=== PATIENT | female | born 1965 | race Caucasian/White ===

== ENCOUNTER 2024-03-01 00:31 | Emergency (ER) | payer OTHER, SELFPAY ==
[2024-03-01 00:34] VITALS: BP 165/106
--- NOTE | 2024-03-01 01:27 | ED.GENMED ---
History of Present Illness
<Zena Mares EXERCISE SCIENCE INSTRUCTOR - Last Filed: 03/01/24 19:55>
General
Chief Complaint: Dizziness
Source: patient and family (daughter at bedside)
Exam Limitations: none
Time Seen by Provider: 03/01/24 01:04
Nursing documentation reviewed up to this point in time: agreed with
Travel History
Have you had any contact with someone who has COVID-19?: No
Do you have any symptoms of coronavirus? Fever > 100 degrees, chills, cough, shortness of breath, sore throat, loss of taste or smell, muscle aches, or headache?: No
History of Present Illness
History of Present Illness:
58 yo female [place] only speaking (daughter is interpreting) here for episodic dizziness since this a.m. It only occurs if she is laying down on her right side and then turns onto her left side, she feels dizzy for about a minute and then it
subsides. It happened this a.m., then during her nap 2 p.m. and she went to daughter's room and woke her up as she was afraid to go through the night as it occurred again as she lay down tonight. Had mild headache back right side of head, not
unusual for her as she gets frequent headaches. Denies change in vision. Denies numbness or weakness in extremities.
Past History
<Zena Mares, EXERCISE SCIENCE INSTRUCTOR - Last Filed: 03/01/24 19:55>
Past History
ED Past Medical History: HTN
ED Past Surgical History: Appendectomy
Review of Systems
<Zena Mares, EXERCISE SCIENCE INSTRUCTOR - Last Filed: 03/01/24 19:55>
Review of Systems
Allergies reviewed?: Yes
All Other Systems: ROS reviewed and negative except as documented in HPI and ROS
Constitutional: Denies fever or fatigue
Respiratory: Denies trouble breathing
Cardiac: Denies chest pain or syncope
ABD/GI: Denies abdominal pain, nausea or vomiting
: Denies dysuria, frequency, difficulty voiding or urgency
Musculoskeletal: Reports no symptoms
Skin: Reports no symptoms
Neurological: Reports dizzy and headache (mild, typical of her chronic headaches); Denies weakness or numbness
Phy Exam
<Zena Mares, EXERCISE SCIENCE INSTRUCTOR - Last Filed: 03/01/24 19:55>
Physical Exam
Physical Exam:
GENERAL: No acute distress. A&Ox3.
CONSTITUTIONAL: Afebrile.
EYES: PERRL, conjunctivae normal
Neck: Supple
ENMT: moist mucus membranes, Pharynx nl
RESPIRATORY: Regular respirations, nonlabored, lungs clear.
CARDIOVASCULAR: Regular rate and rhythm, no murmurs, no rubs.
GI: Soft, nontender, normal BS
MUSCULOSKELETAL: Moves with ease. Well perfused.
SKIN: Warm, dry, pink
PSYCH: Normal mood and affect. Well kept, interactive and appropriate
NEUROLOGIC: Awake, alert and oriented. CN 2-12 intact. finger to nose intact. No focal neurological deficits. Ambulates well with steady gait.
Course
<Zena Mares, EXERCISE SCIENCE INSTRUCTOR - Last Filed: 03/01/24 19:55>
Orders/Labs/Results
Orders:
Orders
03/01/24 01:19
CT Head W/o Iv Contrast Urgent
Comment:
Reason For Exam: dizziness
03/01/24 01:41
Meclizine [Antivert] 25 mg PO NOW STA
03/01/24 01:47
Complete Blood Count/With Diff Urgent
Comprehensive Metabolic Panel Urgent
Urinalysis Reflex To Culture Urgent
Date Specimen was Collected: 03/01/24
Time Specimen was Collected: 01:38
Abnormal Lab Results
03/01/24
01:47
Hct 36.3 L %
(37.0-47.0)
MPV 10.7 H fL
(7.4-10.4)
Chloride 109 H mmol/L
(98-107)
Creatinine 0.5 L mg/dL
(0.6-1.0)
Glucose 119 H mg/dl
(70-99)
03/01/24 01:47
03/01/24 01:47
Vital Signs
Initial and Last Documented VS:
Initial Vital Signs
Temp Pulse Resp BP Pulse Ox
98.7 F 74 16 165/106 100
03/01/24 00:34 03/01/24 00:34 03/01/24 00:34 03/01/24 00:34 03/01/24 00:34
Last Documented Vital Signs
Temp Pulse Resp BP Pulse Ox
98.7 F 72 14 156/96 97
03/01/24 00:34 03/01/24 02:30 03/01/24 02:30 03/01/24 02:30 03/01/24 02:30
<Isaac Lester, DO - Last Filed: 03/01/24 02:47>
Orders/Labs/Results
Orders:
Orders
03/01/24 01:19
CT Head W/o Iv Contrast Urgent
Comment:
Reason For Exam: dizziness
03/01/24 01:41
Meclizine [Antivert] 25 mg PO NOW STA
03/01/24 01:47
Complete Blood Count/With Diff Urgent
Comprehensive Metabolic Panel Urgent
Urinalysis Reflex To Culture Urgent
Date Specimen was Collected: 03/01/24
Time Specimen was Collected: 01:38
Abnormal Lab Results
03/01/24
01:47
Hct 36.3 L %
(37.0-47.0)
MPV 10.7 H fL
(7.4-10.4)
Chloride 109 H mmol/L
(98-107)
Creatinine 0.5 L mg/dL
(0.6-1.0)
Glucose 119 H mg/dl
(70-99)
03/01/24 01:47
03/01/24 01:47
Vital Signs
Initial and Last Documented VS:
Initial Vital Signs
Temp Pulse Resp BP Pulse Ox
98.7 F 74 16 165/106 100
03/01/24 00:34 03/01/24 00:34 03/01/24 00:34 03/01/24 00:34 03/01/24 00:34
Last Documented Vital Signs
Temp Pulse Resp BP Pulse Ox
98.7 F 72 14 156/96 97
03/01/24 00:34 03/01/24 02:30 03/01/24 02:30 03/01/24 02:30 03/01/24 02:30
<Zena Mares EXERCISE SCIENCE INSTRUCTOR - Last Filed: 03/01/24 19:55>
MDM/Problems Addressed
Differential Diagnosis Includes:
BPPV, vestibular neuritis, CVA, migrainous dizziness
MDM/Problems Addressed:
58 yo female [place] only speaking (daughter is interpreting) here for episodic dizziness since this a.m. It only occurs if she is laying down on her right side and then turns onto her left side, she feels dizzy for about a minute and then it
subsides. It happened this a.m., then during her nap 2 p.m. and she went to daughter's room and woke her up as she was afraid to go through the night as it occurred again as she lay down tonight. Had mild headache back right side of head, not
unusual for her as she gets frequent headaches. Denies change in vision. Denies numbness or weakness in extremities.
Afebrile, NAD
This is a well appearing woman, Ambulates well with steady gait. No focal neuro deficits, no nystagmus
2:07 a.mm.
Able to elicit the dizziness by laying on right side for few minutes then turning onto left side, dizziness lasted a few seconds
History and exam most consistent with BPPV
Rx for Meclizine sent to her pharmacy
CBC, CMP unremarkable.
U/A neg
Head CT shows nothing acute
<Zena Mares, EXERCISE SCIENCE INSTRUCTOR - Last Filed: 03/01/24 19:55>
*Critical Care Note
Total Time (30-74mins, 75-104mins- exclusive of procedures): Not Applicable
ED Attending Note
<Zena Mares, EXERCISE SCIENCE INSTRUCTOR - Last Filed: 03/01/24 19:55>
-
Portions of this chart may have been created with voice recognition software.� Occasional wrong word or��sound alike� substitutions may have occurred due to the inherent limitations of voice recognition software.
<Isaac Lester, DO - Last Filed: 03/01/24 02:47>
ED Attending Note
Patient seen and examined by attending physician: Yes
I performed the substantive portion of visit, reviewed & personally made and approve the management plan that is documented in note by myself or CARLOS.: Yes
ED Attending Note:
I have seen and evaluated the patient with a [id number] encounter. I have spoken to the advance practicer provider and involved in the medical history, the physical exam, medical decision making.
Evaluation and management service: agree unless noted differently below.
Results interpretation: agree unless noted differently below.
Focused HPI: 58-year-old female presenting with dizziness described as room spinning. This occurred with certain head movements.
Physical exam: Patient had already received meclizine on my evaluation. She states she is feeling much better. Symptoms are not reproduced
Medical Decision Making: CT head negative and blood work without clinical significance. Family feels comfortable going home with a diagnosis of vertigo. Discussed follow-up with PCP
Discharge Plan
Departure
Patient Disposition: Home (Routine Discharge)
Date of Disposition: 03/01/24
Time of Disposition: 02:47
Patient with high blood pressure during this ER visit?: Yes
Condition: Good
Discharge Problem:
Benign paroxysmal positional vertigo
Instructions: Vertigo (a Type of Dizziness) (DC), Dizziness, BLOOD PRESSURE
Prescriptions:
New
meclizine 25 mg tablet
25 mg PO BID PRN (Reason: dizziness) Qty: 14 0RF
Referrals:
Bryant Rowland, DO [Family Provider] - Follow up in 5-7 days
Activity Restrictions/Additional Instructions:
As we discussed, your workup here tonight shows nothing worrisome.
I sent a prescription to your pharmacy for Meclizine, use if it helps the dizziness.
Interventions
Interventions:
*Risk Screen - Suicide Last Done: 03/01/24 00:34
*General Assessment Last Done: 03/01/24 00:34
*Neglect/Abuse Screening Last Done: 03/01/24 01:56
ED- Fall Risk Assessment Last Done: 03/01/24 00:34
*ED COVID-19 Vaccine History Last Done: 03/01/24 00:34
*Nursing Disposition Last Done: 03/01/24 02:55
ED- Neurological Assessment Last Done: 03/01/24 01:56
ED Swallowing Screen Last Done: 03/01/24 01:56
Discharge Date and Time
Discharge Date/Time: 03/01/24 02:55
Print Language: ROMANSH
[2024-03-01 01:54] LABS: % Basophils 0.5 % (0-2); % Eosinophils 1.3 % (0-6); % Immature Granulocytes 0.3 % (0-0.5); % Lymphocytes 35.3 % (20.5-51.1); % Monocytes 6.9 % (1.7-9.3); % Neutrophils 55.7 % (42.2-75.2); Absolute Eosinophils 0.1 10^3/uL (0-0.7); Absolute Lymphocytes 2.8 10^3/uL (1.2-3.4); Absolute Monocytes 0.6 10^3/uL (0.1-0.6); Absolute Neutrophils 4.4 10^3/uL (1.4-6.5); Hematocrit 36.3 % (37.0-47.0); Hemoglobin 12.8 g/dL (12.0-16.0); Mean Corp Hgb Conc. 35.3 g/dL (33.0-37.0); Mean Corpuscular Hgb 30.1 pg (27.0-31.0); Mean Corpuscular Volume 85.4 fL (81.0-99.0); Mean Platelet Volume 10.7 fL (7.4-10.4); Nucleated Red Blood Cells % 0 %; Platelet Count 258 10^3/uL (130-400); Red Blood Cell Count 4.25 10^6/uL (4.20-5.40); Red Cell Dist. Width 12.5 % (11.5-14.5)
[2024-03-01 01:56] VITALS: BMI 37.0
[2024-03-01 01:57] LABS: Urine Albumin Negative (Neg - Trace); Urine Bilirubin Negative (Negative); Urine Character Clear (Clear); Urine Color Yellow; Urine Glucose Negative (Negative); Urine Ketone Negative (Negative); Urine Leukocyte Negative (Negative); Urine Nitrite Negative (Negative); Urine Occult Blood Negative (Negative); Urine Specific Gravity 1.015 (<1.030); Urine Urobilinogen Negative (Neg - 1+)
[2024-03-01] MEDS: ANTIVERT 25 MG PO (02:19)
[2024-03-01 02:30] VITALS: BP 156/96
[2024-03-01 02:36] LABS: ALT (SGPT) 18 U/L (0-35); AST (SGOT) 22 U/L (14-36); Albumin 4.3 g/dl (3.5-5.0); Alkaline Phosphatase 73 U/L (38-126); Blood Urea Nitrogen 14 mg/dl (7-17); Calcium 9.6 mg/dl (8.4-10.2); Carbon Dioxide 22 mmol/L (22-30); Chloride 109 mmol/L (98-107); Estimated Creatinine Clearance 109 ml/min; Glucose 119 mg/dl (70-99); Potassium 3.9 mmol/L (3.5-5.1); Sodium 141 mmol/L (135-145); Total Bilirubin 0.5 mg/dl (0.2-1.3); Total Protein 7.3 g/dl (6.3-8.2); eGFR > 60.00
== END 2024-03-01 02:55 | disposition home or self-care (01) ==
LOC: EMR 00:31
PROVIDERS: Registered Nurse; EMERGENCY PHYSICIAN Student in an Organized Health Care Education/Training Program; FAMILY PHYSICIAN Student in an Organized Health Care Education/Training Program
DX: H81.10 Benign paroxysmal vertigo, unspecified ear (principal); I10 Essential (primary) hypertension
CPT/HCPCS: 99284; 70450; 80053; 81003; 85025